=== PATIENT | female | born 1980 | race Two or more races ===

== ENCOUNTER → 2020-04-05 | Outpatient (CLI) | payer OTHER | END | disposition home or self-care (01) | LOC: NUCLEAR 10:00 | PROVIDERS: ATTEND Internal Medicine Sports Medicine | DX: R07.89 Other chest pain (principal); R00.2 Palpitations; R06.02 Shortness of breath; I49.8 Other specified cardiac arrhythmias ==

== ENCOUNTER 2020-04-16 12:04 | Outpatient (CLI) | payer OTHER | END 2020-04-16 13:45 | disposition home or self-care (01) | LOC: MRI 12:04 → SONOGRAMA 12:04 | PROVIDERS: ATTEND Pathology Anatomic Pathology & Clinical Pathology | DX: D34 Benign neoplasm of thyroid gland (principal); E04.8 Other specified nontoxic goiter; C73 Malignant neoplasm of thyroid gland ==